=== PATIENT | female | born 1940 | race Caucasian/White ===

== ENCOUNTER → 2016-11-08 | Outpatient (CLI) | payer MEDICARE ==
[~2016-11-08] MED LIST: ENAL10TA7 PO
--- NOTE | 2016-11-08 21:41 | EKG ---
Date Performed: 11/08/2016 Time Performed: 12:16:24 PTAGE: 76 years EKG: Sinus rhythm POSSIBLE LEFT ATRIAL ENLARGEMENT Since previous tracing, no significant change noted BORDERLINE ECG PREVIOUS TRACING : 11/22/2013 01.12 DOCTOR: Raysa Bernal Interpretating Date/Time 11/08/2016 21:39:16
== END ==
LOC: HCAV 11:43
PROVIDERS: ATTEND Orthopaedic Surgery Hand Surgery
DX: I10 Essential (primary) hypertension (principal)
CPT/HCPCS: 93005

== ENCOUNTER → 2016-12-30 | Outpatient (CLI) | payer MEDICARE ==
[2016-12-30 09:33] LABS: HEMATOCRIT 40.7 % (35.0-46.0); MEAN CELL VOLUME 92.1 FL (80.0-100.0); MEAN CORPUSCULAR HEMOGLOBIN 30.4 PG (27.0-34.0); PLATELET COUNT 227 TH/MM3 (150-450); RED BLOOD COUNT 4.42 MIL/MM3 (4.00-5.30); RED CELL DISTRIBUTION WIDTH 13.2 % (11.6-17.2); REVIEW FLAG FINAL; WHITE BLOOD COUNT 5.6 TH/MM3 (4.0-11.0)
[2016-12-30 10:05] LABS: ALKALINE PHOSPHATASE 79 U/L (45-117); ALT (GPT) 21 U/L (10-53); ANION GAP 8 MEQ/L (5-15); AST (GOT) 20 U/L (15-37); BICARBONATE 28.5 MEQ/L (21.0-32.0); BLOOD UREA NITROGEN 17 MG/DL (7-18); CHLORIDE 103 MEQ/L (98-107); GLOMERULAR FILTRATION RATE 74 ML/MIN (>89); GLUCOSE,FASTING 89 MG/DL (74-99); HDL CHOLESTEROL 83.7 MG/DL (40.0-60.0); LDL CHOLESTEROL 72 MG/DL (0-99); LDL CHOLESTEROL DIRECT 63 MG/DL (0-99); POTASSIUM 4.4 MEQ/L (3.5-5.1); SODIUM (NA) 139 MEQ/L (136-145); TOTAL BILIRUBIN ADULT 0.4 MG/DL (0.2-1.0)
[2016-12-30 14:40] LABS: HEMOGLOBIN A1a 1.2 %; HEMOGLOBIN A1b 0.7 %; HEMOGLOBIN Ao 84.8 %; HEMOGLOBIN F 1.5 %; HEMOGLOBIN LA1C 2.1 %; HEMOGLOBIN P3 3.9 %
== END ==
LOC: PLAB 07:41
PROVIDERS: ATTEND Family Medicine
DX: R53.83 Other fatigue (principal); E78.2 Mixed hyperlipidemia; I10 Essential (primary) hypertension; R73.01 Impaired fasting glucose
CPT/HCPCS: 36415; 80053; 80061; 83036; 83721; 84443; 85027

== ENCOUNTER → 2017-05-08 | Outpatient (CLI) | payer MEDICARE ==
[~2017-05-08] MED LIST changes: +DIFL0.0512 RIGHT EYE; +ENAL20TA PO; +LUNE1TAB6 PO; +NEPA0.3D RIGHT EYE; +SIMV40TA PO; +VIGA0.5D RIGHT EYE
[2017-05-08 11:53] LABS: HEMATOCRIT 40.5 % (35.0-46.0); MEAN CELL VOLUME 94.5 FL (80.0-100.0); MEAN CORPUSCULAR HGB CONC 33.8 % (32.0-36.0); PLATELET COUNT 256 TH/MM3 (150-450); RED BLOOD COUNT 4.29 MIL/MM3 (4.00-5.30); RED CELL DISTRIBUTION WIDTH 13.8 % (11.6-17.2); REVIEW FLAG FINAL; WHITE BLOOD COUNT 3.6 TH/MM3 (4.0-11.0)
[2017-05-08 12:02] LABS: ANION GAP 6 MEQ/L (5-15); AST (GOT) 21 U/L (15-37); BICARBONATE 26.6 MEQ/L (21.0-32.0); BLOOD UREA NITROGEN 16 MG/DL (7-18); CHLORIDE 104 MEQ/L (98-107); GLOMERULAR FILTRATION RATE 71 ML/MIN (>89); GLUCOSE,FASTING 85 MG/DL (74-99); POTASSIUM 4.3 MEQ/L (3.5-5.1); SODIUM (NA) 137 MEQ/L (136-145)
[2017-05-08 12:08] LABS: ALKALINE PHOSPHATASE 73 U/L (45-117); ALT (GPT) 21 U/L (10-53); HDL CHOLESTEROL 70.3 MG/DL (40.0-60.0); LDL CHOLESTEROL 80 MG/DL (0-99); LDL CHOLESTEROL DIRECT 92 MG/DL (0-99); TOTAL BILIRUBIN ADULT 0.3 MG/DL (0.2-1.0)
== END ==
LOC: PLAB 08:00
PROVIDERS: ATTEND Family Medicine
DX: E78.2 Mixed hyperlipidemia (principal); I10 Essential (primary) hypertension
CPT/HCPCS: 36415; 80053; 80061; 83721; 85027

== ENCOUNTER 2017-06-07 06:30 | Observation (INO) | payer MEDICARE ==
[~2017-06-07] VITALS: Ht 154.9 cm; Wt 52.0 kg
[~2017-06-07 06:30] MED LIST changes: +CYCLOPENTOLATE HCL 1% OPHT SOLN 2 ML BTL ONE; -ENAL10TA7 PO; -LUNE1TAB6 PO; +PHENYLEPHRINE HCL 10% OPTH SOLN 5 ML BTL ONE; +TETRACAINE 0.5% OPTH SOLN 4 ML BTL ONE; +TROPICAMIDE 1% OPHT SOLN 15 ML BTL ONE
[2017-06-07] MEDS ORDERED: LACTATED RINGER'S 1000 ML IV PRN (06:45)
[2017-06-07] MEDS ORDERED: POVIDONE IODINE 5% (ANTISEPSIS KIT) 4 APPLICATIONS EACH NARE PRN (06:45)
[2017-06-07] MEDS ORDERED: SODIUM CHLORID 0.9% 500 ML IV PRN (06:45)
[2017-06-07] MEDS ORDERED: INSULIN HUMAN REGULAR 1,000 UNITS/10 ML VIAL SQ PRN (06:45)
[2017-06-07] MEDS ORDERED: CHLORHEXIDINE GLUCONATE 2 % 1 PACK (2 CLOTHS) TOPICAL PRN (06:45)
[2017-06-07] MEDS ORDERED: METOPROLOL TARTRATE 25 MG TAB PO PRN (06:45)
[2017-06-07] MEDS ORDERED: TOBRAMYCIN/DEXAMETHASONE OPTH OINT 3.5 GM TUBE ONE (07:10)
[2017-06-07] MEDS ORDERED: VISCOAT OPHT IRRIG SOLN 0.75 ML SYRINGE ONE (07:11)
[2017-06-07] MEDS: TROPICAMIDE 1% OPHT SOLN 15 ML BTL RIGHT EYE SCH ×3 (07:11→07:21)
[2017-06-07] MEDS: CYCLOPENTOLATE HCL 1% OPHT SOLN 2 ML BTL RIGHT EYE SCH ×3 (07:11→07:21)
[2017-06-07] MEDS: PHENYLEPHRINE HCL 2.5% OPTH SOLN 2 ML BTL RIGHT EYE SCH ×3 (07:11→07:21)
[2017-06-07] MEDS: TETRACAINE 0.5% OPTH SOLN 4 ML BTL RIGHT EYE SCH ×3 (07:11→07:21)
[2017-06-07] MEDS ORDERED: LUNE1TAB6 PO (07:23)
[2017-06-07] MEDS ORDERED: EPINEPHrine HCL (1:1000) 1 MG/ML VIAL ONE (08:06)
[2017-06-07 09:25] VITALS: PULSE 85
[2017-06-07] MEDS ORDERED: ACETAMINOPHEN 325 MG TAB ONE (09:31)
[2017-06-07] MEDS ORDERED: LABETALOL HCL 100 MG/20 ML VIAL ONE (09:38)
[2017-06-07] MEDS ORDERED: MORPHINE SULFATE 4 MG/ML INJ ONE (09:40)
[2017-06-07] MEDS ORDERED: NITROGLYCERIN 0.4 MG SL 25 TABS/BTL SL ONE ×2 (10:42→11:30)
[2017-06-07] MEDS ORDERED: ASPIRIN 81 MG CHEW TAB ONE (10:43)
[2017-06-07] MEDS ORDERED: ASPIRIN 81 MG CHEW TAB PO ONE (11:30)
[2017-06-07 11:33] LABS: TROPONIN I LESS THAN 0.02 NG/ML (0.02-0.05)
[2017-06-07] MEDS ORDERED: PROPOFOL 200 MG/20 ML AMP IV ONE (12:00)
--- NOTE | 2017-06-07 12:10 | PD.OP ---
Operative Report Date of Surgery: Jun 07, 2017 Preoperative Diagnosis: (1) Nuclear sclerotic cataract of right eye Postoperative Diagnosis: (1) Pseudophakia of right eye Procedure: phacoemulsification and intraocular lens implant right eye Anesthesia: General Surgeon: Zamzam Matthews Communication Equipment Mechanic(s): none Operation and Findings: Patient was consented for surgery and taken back to the operating room. She was put under general anesthesia and prepped and draped in the usual sterile fashion for ophthalmic surgery. A wire lid speculum was placed in the right eye. A paracentesis incision was created at the 11 o'clock position on the limbus. Vision blue dye and viscoelastic was injected into the anterior chamber. The main incision was created at the 8 o'clock position on the limbus with a 2.4 mm keratome. A continuous curvilinear capsulorrhexis was made on the anterior lens capsule. Hydrodissection was used to separate the lens from the capsule. Phacoemulsification was used to remove the lens nucleus material. Irrigation and aspiration was used to remove the remaining cortical material. The lens implant ([id number] 22.0 D [id number]) was placed in the capsular bag. Viscoelastic was removed with irrigation and aspiration. The incisions were irrigated and found to be watertight. A 10-0 nylon suture was placed at the main incision. Tobradex ointment, a patch, and shield were placed on the right eye. The patient was sent to PACU. There she complained of chest pain and an immediate EKG was done. The patient was going to be transferred to [facility] for further workup. Zamzam Matthews MD Jun 07, 2017 12:10
--- NOTE | 2017-06-07 12:10 | PD.OP ---
Operative Report Date of Surgery: Jun 07, 2017 Preoperative Diagnosis: (1) Nuclear sclerotic cataract of right eye Postoperative Diagnosis: (1) Pseudophakia of right eye Procedure: phacoemulsification and intraocular lens implant right eye Anesthesia: General Surgeon: Zamzam Matthews Public Health Technician(s): none Operation and Findings: Patient was consented for surgery and taken back to the operating room. She was put under general anesthesia and prepped and draped in the usual sterile fashion for ophthalmic surgery. A wire lid speculum was placed in the right eye. A paracentesis incision was created at the 11 o'clock position on the limbus. Vision blue dye and viscoelastic was injected into the anterior chamber. The main incision was created at the 8 o'clock position on the limbus with a 2.4 mm keratome. A continuous curvilinear capsulorrhexis was made on the anterior lens capsule. Hydrodissection was used to separate the lens from the capsule. Phacoemulsification was used to remove the lens nucleus material. Irrigation and aspiration was used to remove the remaining cortical material. The lens implant ([id number] 22.0 D [id number]) was placed in the capsular bag. Viscoelastic was removed with irrigation and aspiration. The incisions were irrigated and found to be watertight. A 10-0 nylon suture was placed at the main incision. Tobradex ointment, a patch, and shield were placed on the right eye. The patient was sent to PACU. There she complained of chest pain and an immediate EKG was done. The patient was going to be transferred to [facility] for further workup. Zamzam Matthews MD Jun 07, 2017 12:10
[2017-06-07 15:06] VITALS: BP 204/86; PULSE 67; RESP 20; TEMP 98.1; O2SAT 98
--- NOTE | 2017-06-07 16:16 | HHI.HP ---
[facility] Primary Care Physician Yariel Hamilton MD Chief Complaint Chest pain History of Present Illness 77-year-old female with known hypertension and hyperlipidemia presents to the emergency room for further evaluation of chest pain while in recovery status post right cataract removal at our [facility]. Onset 10:30. Location [facility]. Described as a "someone was pulling a tight belt around my chest." No associated symptoms of nausea, vomiting, dyspnea, or diaphoresis. No radiation of pain. Severity 6/10. Duration 10 minutes. No known precipitating factors. Relieving factors nitroglycerin, stating worked fairly quickly. Denies similar pain in the past. No particular movement, position, or deep breathing may pain better or worse. Review of Systems General: No fatigue,weakness, fever, chills, or recent illness. Has been her general state of health. Endorses she was anxious regarding cataract surgery. HEENT: No [place], no right eye pain CV: As stated above. No current chest pain or pressure. Chest pain-free since initial episode. RESP: No SOB, cough, or sputum production. GI: No nausea, vomiting, or bowel changes. : No dysuria EXT: No lower leg edema, no paraesthesias MS: No discomfort or change in ROM NEURO: No change in memory, difficulty with balance, LOC, motor/sensory deficits PSYCH: No anxiety or depression. SKIN: No rashes, no concerning lesions Past Family Social History Allergies: Coded Allergies: Sulfa (Sulfonamide Antibiotics) (Verified Allergy, Severe, Rash, 06/07/17) diatrizoate meglumine (Verified Allergy, Severe, SWELLING OF EARS AND FACE , 06/07/17) gadobenic acid (Verified Allergy, Severe, SWELLING OF EARS AND FACE, 06/07) gadodiamide (Verified Allergy, Severe, SWELLING OF EARS AND FACE, 06/07/17 ) gadoteridol (Verified Allergy, Severe, SWELLING OF EARS AND FACE, 06/07/17 ) iodixanol (Verified Allergy, Severe, SWELLING OF EARS AND FACE, 06/07/17) iohexol (Verified Allergy, Severe, SWELLING OF EARS AND FACE, 06/07/17) latex (Verified Allergy, Severe, Red and itchy, 06/07/17) penicillin G (Verified Allergy, Severe, Rash, 06/07/17) Past Medical History Hypertension, hyperlipidemia, insomnia Past Surgical History Hysterectomy Reported Medications Reported Meds & Active Scripts Active Vigamox Opth Drops (Moxifloxacin Opth Drops) 0.5 % Soln 1 Drop RIGHT EYE QID Ilevro Opth Drops (Nepafenac) 0.3 % Soln 1 Drop RIGHT EYE DAILY Durezol Opth (Difluprednate Opth) 0.05% Emul 1 Drop RIGHT EYE QID Lunesta (Eszopiclone) 1 Mg Tab 1 Mg PO HS PRN Simvastatin 40 Mg Tab 40 Mg PO HS Enalapril (Enalapril Maleate) 20 Mg Tab 20 Mg PO DAILY Active Ordered Medications Current Medications Medications (Trade) Dose Ordered Sig/Cony Route Start Time Stop Time Status Last Admin Lactated Ringer's 1,000 ml @ 30 mls/hr Q24H PRN IV 06/07/17 06:45 06/10/17 06:44 Sodium Chloride 500 ml @ 30 mls/hr [id number] PRN IV 06/07/17 06:45 06/10/17 06:44 06/07/17 07:22 (Lopressor) 25 mg SURGICAL ATTENDANT PRN PO 06/07/17 06:45 06/10/17 06:44 (Betadine 5% Antisepsis Kit) 1 applic SURGICAL ATTENDANT PRN EACH NARE 06/07/17 06:45 06/10/17 06:44 (Chlorhexidine 2% Cloth) 3 pack SURGICAL ATTENDANT PRN TOPICAL 06/07/17 06:45 06/10/17 06:44 (NovoLIN R INJ) See Protocol Table ... SURGICAL ATTENDANT PRN SQ 06/07/17 06:45 06/10/17 06:44 Family History Noncontributory for early onset cardiovascular disease. Social History Known hyperlipidemia and hypertension. No known coronary artery disease or diabetes. Former smoker quit in her early 30s, smokes one half pack daily. Endorses 2 glasses of wine weekly. Endorses an active lifestyle. Past cardiac testing 11/21/[address] for syncopal episode. No arrhythmias identified, rare PACs and PVCs Physical Exam Vital Signs Vital Signs Date Time Temp Pulse Resp B/P (MAP) Pulse Ox O2 Delivery O2 Flow Rate FiO2 06/07/17 15:06 98.1 67 20 204/86 (125) 98 06/07/17 14:00 98.6 63 16 143/70 (94) 98 Room Air 06/07/17 13:00 98.6 63 16 143/70 (94) 95 Room Air 06/07/17 12:00 98.6 66 16 158/105 (122) 95 Room Air 06/07/17 11:00 98.6 66 16 163/90 (114) 95 Room Air 06/07/17 10:45 62 16 187/98 (127) 98 Room Air 06/07/17 10:30 70 16 201/102 (135) 96 Room Air 06/07/17 10:15 77 16 155/94 (114) 98 Room Air 06/07/17 10:00 72 16 190/94 (126) 98 Room Air 06/07/17 09:45 75 16 194/96 (128) 98 Room Air 06/07/17 09:30 93 16 190/103 (132) 98 Room Air 06/07/17 09:30 98.6 84 16 170/113 (132) 98 Room Air 06/07/17 09:25 85 06/07/17 08:41 70 193/99 06/07/17 07:11 97.6 70 16 184/98 (126) 97 Physical Exam GENERAL: Alert WN, WD, NAD, pleasant, elderly female with right eye patch in place. HEAD: NC, AT CV: RRR, without murmur, rub, gallop, no JVD, S1-S2 no S3-S4. No carotid bruits. RESP: Clear lungs throughout bilateral, no crackles, wheeze, rhonchi, symmetrical chest rise, nonlabored, able to speak in full sentences ABD: Soft, NT, ND, no masses, positive bowel tones BACK: No CVAT EXT: Pulses +24, no dependent edema MS: Normal tone 4 extremities, nontender, no obvious deformities, full range of motion NEURO: CN II through CN XII grossly intact, motor strength 5/5 PSYCH: A+O 3, pleasant affect, appropriate speech, appropriate mood and affect , insight and judgment SKIN: Normal turgor, normal texture, no lesions, no rashes, brisk cap refill, even hair distribution Laboratory Laboratory Tests Test 06/07/17 10:55 Total Creatine Kinase 83 Troponin I LESS THAN 0.02 Course EKG NSR, no st t segment changes Caprini VTE Risk Assessment Caprini VTE Risk Assessment: Mod/High Risk (score >= 2) Caprini Risk Assessment Model Point Value = 1 Point Value = 2 Point Value = 3 Point Value = 5 Age 41-60 Minor surgery BMI > 25 kg/m2 Swollen legs Varicose veins or History of unexplained or recurrent spontaneous Oral contraceptives or hormone replacement Sepsis (< 1 month) Serious lung disease, including pneumonia (< 1 month) Abnormal pulmonary function Acute myocardial infarction Congestive heart failure (< 1 month) History of inflammatory bowel disease Medical patient at bed rest Age 61-74 Arthroscopic surgery Major open surgery (> 45 min) Laparoscopic surgery (> 45 min) Malignancy Confined to bed (> 72 hours) Immobilizing plaster cast Central venous access Age >= 75 History of VTE Family history of VTE Factor V Leiden Prothrombin [id number] Lupus anticoagulant Anticardiolipin antibodies Elevated serum homocysteine Heparin-induced thrombocytopenia Other congenital or acquired thrombophilia Stroke (< 1 month) Elective arthroplasty Hip, pelvis, or leg fracture Acute spinal cord injury (< 1 month) Prophylaxis Regimen Total Risk Factor Score Risk Level Prophylaxis Regimen 0-1 Low Early ambulation 2 Moderate Order ONE of the following: *Sequential Compression Device (SCD) *Heparin 5000 units SQ BID 3-4 Higher Order ONE of the following medications: *Heparin 5000 units SQ TID *Enoxaparin/Lovenox 40 mg SQ daily (WT < 150 kg, CrCl > 30 mL/min) *Enoxaparin/Lovenox 30 mg SQ daily (WT < 150 kg, CrCl > 10-29 mL/min) *Enoxaparin/Lovenox 30 mg SQ BID (WT < 150 kg, CrCl > 30 mL/min) AND/OR *Sequential Compression Device (SCD) 5 or more Highest Order ONE of the following medications: *Heparin 5000 units SQ TID (Preferred with Epidurals) *Enoxaparin/Lovenox 40 mg SQ daily (WT < 150 kg, CrCl > 30 mL/min) *Enoxaparin/Lovenox 30 mg SQ daily (WT < 150 kg, CrCl > 10-29 mL/min) *Enoxaparin/Lovenox 30 mg SQ BID (WT < 150 kg, CrCl > 30 mL/min) AND *Sequential Compression Device (SCD) Assessment and Plan Assessment and Plan #1 Chest pain-admitted to chest pain center. Ruled out with 3 sets of EKGs, cardiac enzymes, and monitored on telemetry overnight. Seen and evaluated by Dr. Kwan Olivarez. If ruled out we'll complete chemical stress test in a.m. This is been discussed with patient and both are agreeable plan of care. CBC, CMP, and Chest xray ordered. #2 Hypertension-continue enalapril #3 Hyperlipidemia-continue simvastatin #4 Insomnia-continue Lunesta #5 Status post right cataract removal-postop appointment tomorrow afternoon, if chemical stress test unremarkable will discharge with hopes of making postop appointment. Continue eye gtts as previously instructed. Aimee Sanches Jun 07, 2017 16:16
--- NOTE | 2017-06-07 16:16 | HHI.HP ---
[facility] Primary Care Physician Yariel Hamilton MD Chief Complaint Chest pain History of Present Illness 77-year-old female with known hypertension and hyperlipidemia presents to the emergency room for further evaluation of chest pain while in recovery status post right cataract removal at our [facility]. Onset 10:30. Location [facility]. Described as a "someone was pulling a tight belt around my chest." No associated symptoms of nausea, vomiting, dyspnea, or diaphoresis. No radiation of pain. Severity 6/10. Duration 10 minutes. No known precipitating factors. Relieving factors nitroglycerin, stating worked fairly quickly. Denies similar pain in the past. No particular movement, position, or deep breathing may pain better or worse. Review of Systems General: No fatigue,weakness, fever, chills, or recent illness. Has been her general state of health. Endorses she was anxious regarding cataract surgery. HEENT: No [place], no right eye pain CV: As stated above. No current chest pain or pressure. Chest pain-free since initial episode. RESP: No SOB, cough, or sputum production. GI: No nausea, vomiting, or bowel changes. : No dysuria EXT: No lower leg edema, no paraesthesias MS: No discomfort or change in ROM NEURO: No change in memory, difficulty with balance, LOC, motor/sensory deficits PSYCH: No anxiety or depression. SKIN: No rashes, no concerning lesions Past Family Social History Allergies: Coded Allergies: Sulfa (Sulfonamide Antibiotics) (Verified Allergy, Severe, Rash, 06/07/17) diatrizoate meglumine (Verified Allergy, Severe, SWELLING OF EARS AND FACE , 06/07/17) gadobenic acid (Verified Allergy, Severe, SWELLING OF EARS AND FACE, 06/07) gadodiamide (Verified Allergy, Severe, SWELLING OF EARS AND FACE, 06/07/17 ) gadoteridol (Verified Allergy, Severe, SWELLING OF EARS AND FACE, 06/07/17 ) iodixanol (Verified Allergy, Severe, SWELLING OF EARS AND FACE, 06/07/17) iohexol (Verified Allergy, Severe, SWELLING OF EARS AND FACE, 06/07/17) latex (Verified Allergy, Severe, Red and itchy, 06/07/17) penicillin G (Verified Allergy, Severe, Rash, 06/07/17) Past Medical History Hypertension, hyperlipidemia, insomnia Past Surgical History Hysterectomy Reported Medications Reported Meds & Active Scripts Active Vigamox Opth Drops (Moxifloxacin Opth Drops) 0.5 % Soln 1 Drop RIGHT EYE QID Ilevro Opth Drops (Nepafenac) 0.3 % Soln 1 Drop RIGHT EYE DAILY Durezol Opth (Difluprednate Opth) 0.05% Emul 1 Drop RIGHT EYE QID Lunesta (Eszopiclone) 1 Mg Tab 1 Mg PO HS PRN Simvastatin 40 Mg Tab 40 Mg PO HS Enalapril (Enalapril Maleate) 20 Mg Tab 20 Mg PO DAILY Active Ordered Medications Current Medications Medications (Trade) Dose Ordered Sig/Cony Route Start Time Stop Time Status Last Admin Lactated Ringer's 1,000 ml @ 30 mls/hr Q24H PRN IV 06/07/17 06:45 06/10/17 06:44 Sodium Chloride 500 ml @ 30 mls/hr [id number] PRN IV 06/07/17 06:45 06/10/17 06:44 06/07/17 07:22 (Lopressor) 25 mg GRID MAKER PRN PO 06/07/17 06:45 06/10/17 06:44 (Betadine 5% Antisepsis Kit) 1 applic GRID MAKER PRN EACH NARE 06/07/17 06:45 06/10/17 06:44 (Chlorhexidine 2% Cloth) 3 pack GRID MAKER PRN TOPICAL 06/07/17 06:45 06/10/17 06:44 (NovoLIN R INJ) See Protocol Table ... GRID MAKER PRN SQ 06/07/17 06:45 06/10/17 06:44 Family History Noncontributory for early onset cardiovascular disease. Social History Known hyperlipidemia and hypertension. No known coronary artery disease or diabetes. Former smoker quit in her early 30s, smokes one half pack daily. Endorses 2 glasses of wine weekly. Endorses an active lifestyle. Past cardiac testing 11/21/[address] for syncopal episode. No arrhythmias identified, rare PACs and PVCs Physical Exam Vital Signs Vital Signs Date Time Temp Pulse Resp B/P (MAP) Pulse Ox O2 Delivery O2 Flow Rate FiO2 06/07/17 15:06 98.1 67 20 204/86 (125) 98 06/07/17 14:00 98.6 63 16 143/70 (94) 98 Room Air 06/07/17 13:00 98.6 63 16 143/70 (94) 95 Room Air 06/07/17 12:00 98.6 66 16 158/105 (122) 95 Room Air 06/07/17 11:00 98.6 66 16 163/90 (114) 95 Room Air 06/07/17 10:45 62 16 187/98 (127) 98 Room Air 06/07/17 10:30 70 16 201/102 (135) 96 Room Air 06/07/17 10:15 77 16 155/94 (114) 98 Room Air 06/07/17 10:00 72 16 190/94 (126) 98 Room Air 06/07/17 09:45 75 16 194/96 (128) 98 Room Air 06/07/17 09:30 93 16 190/103 (132) 98 Room Air 06/07/17 09:30 98.6 84 16 170/113 (132) 98 Room Air 06/07/17 09:25 85 06/07/17 08:41 70 193/99 06/07/17 07:11 97.6 70 16 184/98 (126) 97 Physical Exam GENERAL: Alert WN, WD, NAD, pleasant, elderly female with right eye patch in place. HEAD: NC, AT CV: RRR, without murmur, rub, gallop, no JVD, S1-S2 no S3-S4. No carotid bruits. RESP: Clear lungs throughout bilateral, no crackles, wheeze, rhonchi, symmetrical chest rise, nonlabored, able to speak in full sentences ABD: Soft, NT, ND, no masses, positive bowel tones BACK: No CVAT EXT: Pulses +24, no dependent edema MS: Normal tone 4 extremities, nontender, no obvious deformities, full range of motion NEURO: CN II through CN XII grossly intact, motor strength 5/5 PSYCH: A+O 3, pleasant affect, appropriate speech, appropriate mood and affect , insight and judgment SKIN: Normal turgor, normal texture, no lesions, no rashes, brisk cap refill, even hair distribution Laboratory Laboratory Tests Test 06/07/17 10:55 Total Creatine Kinase 83 Troponin I LESS THAN 0.02 Course EKG NSR, no st t segment changes Caprini VTE Risk Assessment Caprini VTE Risk Assessment: Mod/High Risk (score >= 2) Caprini Risk Assessment Model Point Value = 1 Point Value = 2 Point Value = 3 Point Value = 5 Age 41-60 Minor surgery BMI > 25 kg/m2 Swollen legs Varicose veins or History of unexplained or recurrent spontaneous Oral contraceptives or hormone replacement Sepsis (< 1 month) Serious lung disease, including pneumonia (< 1 month) Abnormal pulmonary function Acute myocardial infarction Congestive heart failure (< 1 month) History of inflammatory bowel disease Medical patient at bed rest Age 61-74 Arthroscopic surgery Major open surgery (> 45 min) Laparoscopic surgery (> 45 min) Malignancy Confined to bed (> 72 hours) Immobilizing plaster cast Central venous access Age >= 75 History of VTE Family history of VTE Factor V Leiden Prothrombin [id number] Lupus anticoagulant Anticardiolipin antibodies Elevated serum homocysteine Heparin-induced thrombocytopenia Other congenital or acquired thrombophilia Stroke (< 1 month) Elective arthroplasty Hip, pelvis, or leg fracture Acute spinal cord injury (< 1 month) Prophylaxis Regimen Total Risk Factor Score Risk Level Prophylaxis Regimen 0-1 Low Early ambulation 2 Moderate Order ONE of the following: *Sequential Compression Device (SCD) *Heparin 5000 units SQ BID 3-4 Higher Order ONE of the following medications: *Heparin 5000 units SQ TID *Enoxaparin/Lovenox 40 mg SQ daily (WT < 150 kg, CrCl > 30 mL/min) *Enoxaparin/Lovenox 30 mg SQ daily (WT < 150 kg, CrCl > 10-29 mL/min) *Enoxaparin/Lovenox 30 mg SQ BID (WT < 150 kg, CrCl > 30 mL/min) AND/OR *Sequential Compression Device (SCD) 5 or more Highest Order ONE of the following medications: *Heparin 5000 units SQ TID (Preferred with Epidurals) *Enoxaparin/Lovenox 40 mg SQ daily (WT < 150 kg, CrCl > 30 mL/min) *Enoxaparin/Lovenox 30 mg SQ daily (WT < 150 kg, CrCl > 10-29 mL/min) *Enoxaparin/Lovenox 30 mg SQ BID (WT < 150 kg, CrCl > 30 mL/min) AND *Sequential Compression Device (SCD) Assessment and Plan Assessment and Plan #1 Chest pain-admitted to chest pain center. Ruled out with 3 sets of EKGs, cardiac enzymes, and monitored on telemetry overnight. Seen and evaluated by Dr. Kwan Olivarez. If ruled out we'll complete chemical stress test in a.m. This is been discussed with patient and both are agreeable plan of care. CBC, CMP, and Chest xray ordered. #2 Hypertension-continue enalapril #3 Hyperlipidemia-continue simvastatin #4 Insomnia-continue Lunesta #5 Status post right cataract removal-postop appointment tomorrow afternoon, if chemical stress test unremarkable will discharge with hopes of making postop appointment. Continue eye gtts as previously instructed. Aimee Sanches Jun 07, 2017 16:16
--- NOTE | 2017-06-07 16:16 | HHI.HP ---
[facility] Primary Care Physician Yariel Hamilton MD Chief Complaint Chest pain History of Present Illness 77-year-old female with known hypertension and hyperlipidemia presents to the emergency room for further evaluation of chest pain while in recovery status post right cataract removal at our [facility]. Onset 10:30. Location [facility]. Described as a "someone was pulling a tight belt around my chest." No associated symptoms of nausea, vomiting, dyspnea, or diaphoresis. No radiation of pain. Severity 6/10. Duration 10 minutes. No known precipitating factors. Relieving factors nitroglycerin, stating worked fairly quickly. Denies similar pain in the past. No particular movement, position, or deep breathing may pain better or worse. Review of Systems General: No fatigue,weakness, fever, chills, or recent illness. Has been her general state of health. Endorses she was anxious regarding cataract surgery. HEENT: No [place], no right eye pain CV: As stated above. No current chest pain or pressure. Chest pain-free since initial episode. RESP: No SOB, cough, or sputum production. GI: No nausea, vomiting, or bowel changes. : No dysuria EXT: No lower leg edema, no paraesthesias MS: No discomfort or change in ROM NEURO: No change in memory, difficulty with balance, LOC, motor/sensory deficits PSYCH: No anxiety or depression. SKIN: No rashes, no concerning lesions Past Family Social History Allergies: Coded Allergies: Sulfa (Sulfonamide Antibiotics) (Verified Allergy, Severe, Rash, 06/07/17) diatrizoate meglumine (Verified Allergy, Severe, SWELLING OF EARS AND FACE , 06/07/17) gadobenic acid (Verified Allergy, Severe, SWELLING OF EARS AND FACE, 06/07) gadodiamide (Verified Allergy, Severe, SWELLING OF EARS AND FACE, 06/07/17 ) gadoteridol (Verified Allergy, Severe, SWELLING OF EARS AND FACE, 06/07/17 ) iodixanol (Verified Allergy, Severe, SWELLING OF EARS AND FACE, 06/07/17) iohexol (Verified Allergy, Severe, SWELLING OF EARS AND FACE, 06/07/17) latex (Verified Allergy, Severe, Red and itchy, 06/07/17) penicillin G (Verified Allergy, Severe, Rash, 06/07/17) Past Medical History Hypertension, hyperlipidemia, insomnia Past Surgical History Hysterectomy Reported Medications Reported Meds & Active Scripts Active Vigamox Opth Drops (Moxifloxacin Opth Drops) 0.5 % Soln 1 Drop RIGHT EYE QID Ilevro Opth Drops (Nepafenac) 0.3 % Soln 1 Drop RIGHT EYE DAILY Durezol Opth (Difluprednate Opth) 0.05% Emul 1 Drop RIGHT EYE QID Lunesta (Eszopiclone) 1 Mg Tab 1 Mg PO HS PRN Simvastatin 40 Mg Tab 40 Mg PO HS Enalapril (Enalapril Maleate) 20 Mg Tab 20 Mg PO DAILY Active Ordered Medications Current Medications Medications (Trade) Dose Ordered Sig/Cony Route Start Time Stop Time Status Last Admin Lactated Ringer's 1,000 ml @ 30 mls/hr Q24H PRN IV 06/07/17 06:45 06/10/17 06:44 Sodium Chloride 500 ml @ 30 mls/hr [id number] PRN IV 06/07/17 06:45 06/10/17 06:44 06/07/17 07:22 (Lopressor) 25 mg [employer] PRN PO 06/07/17 06:45 06/10/17 06:44 (Betadine 5% Antisepsis Kit) 1 applic [employer] PRN EACH NARE 06/07/17 06:45 06/10/17 06:44 (Chlorhexidine 2% Cloth) 3 pack [employer] PRN TOPICAL 06/07/17 06:45 06/10/17 06:44 (NovoLIN R INJ) See Protocol Table ... [employer] PRN SQ 06/07/17 06:45 06/10/17 06:44 Family History Noncontributory for early onset cardiovascular disease. Social History Known hyperlipidemia and hypertension. No known coronary artery disease or diabetes. Former smoker quit in her early 30s, smokes one half pack daily. Endorses 2 glasses of wine weekly. Endorses an active lifestyle. Past cardiac testing 11/21/[address] for syncopal episode. No arrhythmias identified, rare PACs and PVCs Physical Exam Vital Signs Vital Signs Date Time Temp Pulse Resp B/P (MAP) Pulse Ox O2 Delivery O2 Flow Rate FiO2 06/07/17 15:06 98.1 67 20 204/86 (125) 98 06/07/17 14:00 98.6 63 16 143/70 (94) 98 Room Air 06/07/17 13:00 98.6 63 16 143/70 (94) 95 Room Air 06/07/17 12:00 98.6 66 16 158/105 (122) 95 Room Air 06/07/17 11:00 98.6 66 16 163/90 (114) 95 Room Air 06/07/17 10:45 62 16 187/98 (127) 98 Room Air 06/07/17 10:30 70 16 201/102 (135) 96 Room Air 06/07/17 10:15 77 16 155/94 (114) 98 Room Air 06/07/17 10:00 72 16 190/94 (126) 98 Room Air 06/07/17 09:45 75 16 194/96 (128) 98 Room Air 06/07/17 09:30 93 16 190/103 (132) 98 Room Air 06/07/17 09:30 98.6 84 16 170/113 (132) 98 Room Air 06/07/17 09:25 85 06/07/17 08:41 70 193/99 06/07/17 07:11 97.6 70 16 184/98 (126) 97 Physical Exam GENERAL: Alert WN, WD, NAD, pleasant, elderly female with right eye patch in place. HEAD: NC, AT CV: RRR, without murmur, rub, gallop, no JVD, S1-S2 no S3-S4. No carotid bruits. RESP: Clear lungs throughout bilateral, no crackles, wheeze, rhonchi, symmetrical chest rise, nonlabored, able to speak in full sentences ABD: Soft, NT, ND, no masses, positive bowel tones BACK: No CVAT EXT: Pulses +24, no dependent edema MS: Normal tone 4 extremities, nontender, no obvious deformities, full range of motion NEURO: CN II through CN XII grossly intact, motor strength 5/5 PSYCH: A+O 3, pleasant affect, appropriate speech, appropriate mood and affect , insight and judgment SKIN: Normal turgor, normal texture, no lesions, no rashes, brisk cap refill, even hair distribution Laboratory Laboratory Tests Test 06/07/17 10:55 Total Creatine Kinase 83 Troponin I LESS THAN 0.02 Course EKG NSR, no st t segment changes Caprini VTE Risk Assessment Caprini VTE Risk Assessment: Mod/High Risk (score >= 2) Caprini Risk Assessment Model Point Value = 1 Point Value = 2 Point Value = 3 Point Value = 5 Age 41-60 Minor surgery BMI > 25 kg/m2 Swollen legs Varicose veins or History of unexplained or recurrent spontaneous Oral contraceptives or hormone replacement Sepsis (< 1 month) Serious lung disease, including pneumonia (< 1 month) Abnormal pulmonary function Acute myocardial infarction Congestive heart failure (< 1 month) History of inflammatory bowel disease Medical patient at bed rest Age 61-74 Arthroscopic surgery Major open surgery (> 45 min) Laparoscopic surgery (> 45 min) Malignancy Confined to bed (> 72 hours) Immobilizing plaster cast Central venous access Age >= 75 History of VTE Family history of VTE Factor V Leiden Prothrombin [id number] Lupus anticoagulant Anticardiolipin antibodies Elevated serum homocysteine Heparin-induced thrombocytopenia Other congenital or acquired thrombophilia Stroke (< 1 month) Elective arthroplasty Hip, pelvis, or leg fracture Acute spinal cord injury (< 1 month) Prophylaxis Regimen Total Risk Factor Score Risk Level Prophylaxis Regimen 0-1 Low Early ambulation 2 Moderate Order ONE of the following: *Sequential Compression Device (SCD) *Heparin 5000 units SQ BID 3-4 Higher Order ONE of the following medications: *Heparin 5000 units SQ TID *Enoxaparin/Lovenox 40 mg SQ daily (WT < 150 kg, CrCl > 30 mL/min) *Enoxaparin/Lovenox 30 mg SQ daily (WT < 150 kg, CrCl > 10-29 mL/min) *Enoxaparin/Lovenox 30 mg SQ BID (WT < 150 kg, CrCl > 30 mL/min) AND/OR *Sequential Compression Device (SCD) 5 or more Highest Order ONE of the following medications: *Heparin 5000 units SQ TID (Preferred with Epidurals) *Enoxaparin/Lovenox 40 mg SQ daily (WT < 150 kg, CrCl > 30 mL/min) *Enoxaparin/Lovenox 30 mg SQ daily (WT < 150 kg, CrCl > 10-29 mL/min) *Enoxaparin/Lovenox 30 mg SQ BID (WT < 150 kg, CrCl > 30 mL/min) AND *Sequential Compression Device (SCD) Assessment and Plan Assessment and Plan #1 Chest pain-admitted to chest pain center. Ruled out with 3 sets of EKGs, cardiac enzymes, and monitored on telemetry overnight. Seen and evaluated by Dr. Kwan Olivarez. If ruled out we'll complete chemical stress test in a.m. This is been discussed with patient and both are agreeable plan of care. CBC, CMP, and Chest xray ordered. #2 Hypertension-continue enalapril #3 Hyperlipidemia-continue simvastatin #4 Insomnia-continue Lunesta #5 Status post right cataract removal-postop appointment tomorrow afternoon, if chemical stress test unremarkable will discharge with hopes of making postop appointment. Continue eye gtts as previously instructed. Aimee Sanches Jun 07, 2017 16:16
[2017-06-07] MEDS ORDERED: SODIUM CHLORIDE 0.9% FLUSH 10 ML FLUSH IV FLUSH PRN (17:30)
[2017-06-07] MEDS ORDERED: NITROGLYCERIN 0.4 MG SL 25 TABS/BTL SL PRN (17:30)
[2017-06-07] MEDS ORDERED: ESZOPICLONE 1 MG TAB PO PRN (17:30)
[2017-06-07] MEDS ORDERED: ACETAMINOPHEN 500 MG CPLT PO PRN (17:30)
[2017-06-07] MEDS ORDERED: ONDANSETRON HCL 4 MG/2 ML VIAL IV PUSH PRN (17:30)
--- NOTE | 2017-06-07 17:58 | RADRPT ---
EXAM DATE/TIME: 06/07/2017 18:31 [facility] COMPARISON: CHEST SINGLE AP, November 21, 2013, 14:14. INDICATIONS : Chest pain. MEDICAL HISTORY : None. SURGICAL HISTORY : None. ENCOUNTER: Initial ACUITY: 1 day PAIN SCORE: 10 LOCATION: Bilateral chest FINDINGS: A single view of the chest demonstrates the lungs to be symmetrically aerated without evidence of mas s, infiltrate or effusion. The cardiomediastinal contours are unremarkable. Osseous structures are intact. CONCLUSION: The lungs are clear. Dony Funez MD on June 07, 2017 at 17:57 Board Certified Radiologist. This report was verified electronically.
[2017-06-07] MEDS ORDERED: DIFLUPREDNATE OPTH RIGHT EYE SCH (18:00)
[2017-06-07] MEDS ORDERED: MOXIFLOXACIN 0.5% OPHT SOLN 3 ML BTL RIGHT EYE SCH (18:00)
[2017-06-07 18:03] LABS: ALBUMIN 3.8 GM/DL (3.4-5.0); ALT (GPT) 41 U/L (10-53); AST (GOT) 39 U/L (15-37); BICARBONATE 28.3 MEQ/L (21.0-32.0); BLOOD UREA NITROGEN 15 MG/DL (7-18); CALCIUM 8.5 MG/DL (8.5-10.1); CHLORIDE 106 MEQ/L (98-107); CREATININE 0.61 MG/DL (0.50-1.00); GLOMERULAR FILTRATION RATE 95 ML/MIN (>89); GLUCOSE,RANDOM 75 MG/DL (74-106); SODIUM (NA) 139 MEQ/L (136-145)
[2017-06-07 18:06] LABS: ALKALINE PHOSPHATASE 67 U/L (45-117); TOTAL BILIRUBIN ADULT 0.4 MG/DL (0.2-1.0); TOTAL PROTEIN 6.6 GM/DL (6.4-8.2)
[2017-06-07 18:07] LABS: TROPONIN I LESS THAN 0.02 NG/ML (0.02-0.05)
[2017-06-07 19:22] VITALS: BP 174/78; PULSE 73; RESP 16; TEMP 98.1; O2SAT 96
[2017-06-07 20:00] VITALS: PULSE 79
[2017-06-07] MEDS: ENALAPRIL MALEATE 10 MG TAB PO SCH (20:15)
[2017-06-07] MEDS: SODIUM CHLORIDE 0.9% FLUSH 10 ML FLUSH IV FLUSH SCH (20:15)
[2017-06-07 20:43] LABS: HEMATOCRIT 38.7 % (35.0-46.0); HEMOGLOBIN 12.7 GM/DL (11.6-15.3); MEAN CELL VOLUME 94.3 FL (80.0-100.0); MEAN CORPUSCULAR HGB CONC 32.8 % (32.0-36.0); MEAN PLATELET VOLUME 9.1 FL (7.0-11.0); PLATELET COUNT 230 TH/MM3 (150-450); RED CELL DISTRIBUTION WIDTH 12.8 % (11.6-17.2); WHITE BLOOD COUNT 5.8 TH/MM3 (4.0-11.0)
[2017-06-07] MEDS ORDERED: PRAVASTATIN SOD 80 MG TAB PO SCH (21:00)
[2017-06-07 21:06] LABS: TROPONIN I LESS THAN 0.02 NG/ML (0.02-0.05)
[2017-06-07 23:46] VITALS: BP 189/91; PULSE 70; RESP 16; TEMP 97.7; O2SAT 97
[2017-06-08] VITALS (9 sets, daily range): BP systolic 167–182; BP diastolic 78–98; PULSE 66–75; RESP 18; TEMP 97.9–98; O2SAT 94–97
[2017-06-08] MEDS ORDERED: amLODIPine BESYLATE 5 MG TAB PO SCH (04:30)
[2017-06-08] MEDS ORDERED: ASPIRIN 325 MG TAB PO SCH (09:00)
[2017-06-08] MEDS ORDERED: ENALAPRIL MALEATE 10 MG TAB PO SCH (09:00)
[2017-06-08] MEDS ORDERED: NON-FORMULARY DRUG (Nepafenac Opth Drops (Ilevro Opth Drops) 1 DROP) RIGHT EYE SCH (09:00)
[2017-06-08] MEDS ORDERED: REGADENOSON INJ 0.4 MG/5 ML SYR ONE (09:28)
[2017-06-08] MEDS: ENALAPRIL MALEATE 10 MG TAB PO SCH (10:55)
[2017-06-08] MEDS: SODIUM CHLORIDE 0.9% FLUSH 10 ML FLUSH IV FLUSH SCH (10:57)
--- NOTE | 2017-06-08 12:09 | RADRPT ---
EXAM DATE/TIME: 06/08/2017 08:29 [facility] COMPARISON: No previous studies available for comparison. INDICATIONS : Midsternal chest pain. Angina. DOSE: 25.3 mCi Tc99m Myoview at stress. 8.8 mCi Tc99m Myoview at rest. 0.4 mg Lexiscan STRESS SYMPTOMS: Patient denies symptoms. EJECTION FRACTION: > 70% MEDICAL HISTORY : Hypertension. SURGICAL HISTORY : Inguinal hernia repair. Hysterectomy. Tubal ligation. ENCOUNTER: Initial ACUITY: 1 day PAIN SCALE: 6/10 LOCATION: Midsternal chest TECHNIQUE: The patient underwent pharmacologic stress with infusion of prescribed dose. Continuous ECG tracing was monitored during stress. Gated SPECT imaging was performed after stress and conventional SPECT i maging was performed at rest. The examination was performed on a SPECT/CT scanner, both attenuation and non-corrected datasets were reviewed. FINDINGS: DISTRIBUTION: The maximum perfused segment at stress is in the lateral wall. PERFUSION STUDY: The pattern of perfusion at stress is within normal limits. GATED STUDY: There is intact wall motion and thickening without hypokinetic or dyskinetic segments. CONCLUSION: 1. No fixed or reversible wall defects to suggest ischemia or infarction. 2. Normal wall motion and calculated ejection fraction. RISK CATEGORY: Low (<1% Annual Mortality Rate) Porfirio Suarez MD on June 08, 2017 at 12:05 Board Certified Radiologist. This report was verified electronically.
--- NOTE | 2017-06-08 12:46 | HHI.DCPOC ---
Discharge Care Plan Diagnosis: (1) Cataract (2) Chest pain (3) Hypertension (4) Hyperlipidemia Goals to Promote Your Health * To prevent worsening of your condition and complications * To maintain your health at the optimal level Directions to Meet Your Goals Take your medications as prescribed Follow your dietary instruction Follow activity as directed Keep your appointments as scheduled Take your immunizations and boosters as scheduled If your symptoms worsen call your PCP, if no PCP go to Urgent Care Center or Emergency Room Smoking is Dangerous to Your Health. Avoid second hand smoke Call the 24-hour hour crisis hotline for domestic abuse at [place] Jun 08, 2017 12:46
--- NOTE | 2017-06-08 12:46 | HHI.DCPOC ---
Discharge Care Plan Diagnosis: (1) Cataract (2) Chest pain (3) Hypertension (4) Hyperlipidemia Goals to Promote Your Health * To prevent worsening of your condition and complications * To maintain your health at the optimal level Directions to Meet Your Goals Take your medications as prescribed Follow your dietary instruction Follow activity as directed Keep your appointments as scheduled Take your immunizations and boosters as scheduled If your symptoms worsen call your PCP, if no PCP go to Urgent Care Center or Emergency Room Smoking is Dangerous to Your Health. Avoid second hand smoke Call the 24-hour hour crisis hotline for domestic abuse at [place] Jun 08, 2017 12:46
--- NOTE | 2017-06-08 12:46 | HHI.DCPOC ---
Discharge Care Plan Diagnosis: (1) Cataract (2) Chest pain (3) Hypertension (4) Hyperlipidemia Goals to Promote Your Health * To prevent worsening of your condition and complications * To maintain your health at the optimal level Directions to Meet Your Goals Take your medications as prescribed Follow your dietary instruction Follow activity as directed Keep your appointments as scheduled Take your immunizations and boosters as scheduled If your symptoms worsen call your PCP, if no PCP go to Urgent Care Center or Emergency Room Smoking is Dangerous to Your Health. Avoid second hand smoke Call the 24-hour hour crisis hotline for domestic abuse at [place] Jun 08, 2017 12:46
[2017-06-08] MEDS ORDERED: amLODIPine BESYLATE 5 MG TAB PO ONE (13:00)
--- NOTE | 2017-06-10 13:00 | EKG ---
Date Performed: 06/07/2017 Time Performed: 17:55:48 PTAGE: 77 years EKG: Sinus rhythm WITH SINUS ARRHYTHMIA POSSIBLE LEFT ATRIAL ENLARGEMENT SEPTAL MYOCARDIAL INFARCTION ABNORMAL ECG NO SIG CHANGE PREVIOUS TRACING : 06/07/2017 10.40 DOCTOR: Roldan Pettit Interpretating Date/Time 06/10/2017 12:58:55
--- NOTE | 2017-06-10 15:40 | TR ---
Date Performed: 06/08/2017 Time Performed: 09:31:52 DOCTOR: Roldan Pettit DRUG LIST: CLINICAL HISTORY: ANGINA REASON FOR TEST: REASON FOR ENDING: OBSERVATION: CONCLUSION: Lexiscan stress test was performed under standard four minute protocol. Radionuclide was injected one minute prior to ending the test. No electrocardiographic abormalities were present to suggest ischemia. Nuclear imaging and interpretation are pending. COMMENTS:
--- NOTE | 2017-06-11 15:13 | EKG ---
Date Performed: 06/07/2017 Time Performed: 10:40:48 PTAGE: 77 years EKG: SINUS BRADYCARDIA SEPTAL MYOCARDIAL INFARCTION AGE UNDETERMINED CLINICAL CORRELATION NEEDED INTERPRETATION BASED ON A DEFAULT AGE OF 40 YEARS PREVIOUS TRACING : 11/08/2016 12.16 DOCTOR: Roldan Pettit Interpretating Date/Time 06/11/2017 15:12:15
== END 2017-06-08 13:36 | disposition home or self-care (01) ==
LOC: PHSDC 06:30 → NEPFCDU 15:22
PROVIDERS: ADMIT Internal Medicine Cardiovascular Disease; ATTEND Internal Medicine Cardiovascular Disease
DX: R07.9 Chest pain, unspecified (principal); H25.11 Age-related nuclear cataract, right eye; E78.5 Hyperlipidemia, unspecified; I10 Essential (primary) hypertension; Z87.891 Personal history of nicotine dependence; R00.1 Bradycardia, unspecified; Z79.899 Other long term (current) drug therapy; G47.00 Insomnia, unspecified
CPT/HCPCS: 00142; 66984; 71010; 78452; 80053; 82550; 84484; 85027; 93005; 93017; A9502; G0378; J0171; J2270; J2785; J7040; V2632

== ENCOUNTER → 2017-08-30 | Outpatient (CLI) | payer MEDICARE ==
[~2017-08-30] MED LIST changes: -CYCLOPENTOLATE HCL 1% OPHT SOLN 2 ML BTL ONE; +LUNE1TAB8 PO; -PHENYLEPHRINE HCL 10% OPTH SOLN 5 ML BTL ONE; -TETRACAINE 0.5% OPTH SOLN 4 ML BTL ONE; -TROPICAMIDE 1% OPHT SOLN 15 ML BTL ONE; +[UNRECOGNIZED DRUG - CODE] EACH EYE
[2017-08-30 09:42] LABS: HEMATOCRIT 39.9 % (35.0-46.0); HEMOGLOBIN 13.5 GM/DL (11.6-15.3); MEAN CORPUSCULAR HEMOGLOBIN 32.2 PG (27.0-34.0); MEAN CORPUSCULAR HGB CONC 33.9 % (32.0-36.0); MEAN PLATELET VOLUME 9.1 FL (7.0-11.0); PLATELET COUNT 291 TH/MM3 (150-450); RED CELL DISTRIBUTION WIDTH 13.2 % (11.6-17.2); WHITE BLOOD COUNT 4.1 TH/MM3 (4.0-11.0)
[2017-08-30 09:51] LABS: ALBUMIN 4.1 GM/DL (3.4-5.0); ALT (GPT) 38 U/L (10-53); AST (GOT) 31 U/L (15-37); BICARBONATE 28.7 MEQ/L (21.0-32.0); BLOOD UREA NITROGEN 21 MG/DL (7-18); CHLORIDE 103 MEQ/L (98-107); CHOLESTEROL 164 MG/DL (120-200); GLOMERULAR FILTRATION RATE 69 ML/MIN (>89); GLUCOSE,FASTING 92 MG/DL (74-99); SODIUM (NA) 137 MEQ/L (136-145)
[2017-08-30 09:58] LABS: ALKALINE PHOSPHATASE 93 U/L (45-117); CHOLESTEROL/ HDL RATIO 2.19 RATIO; HDL CHOLESTEROL 74.8 MG/DL (40.0-60.0); LDL CHOLESTEROL 69 MG/DL (0-99); LDL CHOLESTEROL DIRECT 75 MG/DL (0-99); TOTAL BILIRUBIN ADULT 0.4 MG/DL (0.2-1.0); TOTAL PROTEIN 7.4 GM/DL (6.4-8.2); TRIGLYCERIDES 103 MG/DL (42-150)
== END ==
LOC: PLAB 08-29 07:41
PROVIDERS: ATTEND Family Medicine
DX: E78.2 Mixed hyperlipidemia (principal); I10 Essential (primary) hypertension
CPT/HCPCS: 36415; 80053; 80061; 83721; 85027

== ENCOUNTER → 2017-09-15 | Outpatient (CLI) | payer MEDICARE ==
[~2017-09-15] MED LIST changes: +ECASA81 PO; +HYDR-3580 PO; +PANT20 PO; +PROPOFOL 500 MG/50 ML INJ 50 ML ONE; +SUVO1TAB4 PO
[2017-09-15 09:12] LABS: BILIRUBIN, URINE NEG (NEG); BLOOD, URINE NEG (NEG); GLUCOSE,URINE NEG (NEG); HYALINE CAST, URINE 1 /lpf (RARE); KETONE, URINE NEG (NEG); MUCUS URINE FEW /lpf (OCC); NITRITE,URINE NEG (NEG); SQUAMOUS EPITHELIAL CELL URINE <1 /hpf (0-5); URINE COLOR YELLOW (YELLW/STRAW); URINE LEUKOCYTE ESTERASE NEG (NEG)
[2017-09-15 09:12] LABS: HEMATOCRIT 37.8 % (35.0-46.0); MEAN CELL VOLUME 95.2 FL (80.0-100.0); MEAN CORPUSCULAR HEMOGLOBIN 32.7 PG (27.0-34.0); MEAN CORPUSCULAR HGB CONC 34.3 % (32.0-36.0); MEAN PLATELET VOLUME 8.3 FL (7.0-11.0); PLATELET COUNT 319 TH/MM3 (150-450); RED BLOOD COUNT 3.97 MIL/MM3 (4.00-5.30); RED CELL DISTRIBUTION WIDTH 14.6 % (11.6-17.2); WHITE BLOOD COUNT 5.8 TH/MM3 (4.0-11.0)
[2017-09-15 09:17] LABS: PROTHROMBIN TIME - PATIENT 9.7 SEC (9.8-11.6)
[2017-09-15 09:26] LABS: BICARBONATE 27.6 MEQ/L (21.0-32.0); CALCIUM 9.5 MG/DL (8.5-10.1); CREATININE 0.69 MG/DL (0.50-1.00)
== END ==
LOC: CPRE 07:56
PROVIDERS: ATTEND Orthopaedic Surgery
DX: Z01.812 Encounter for preprocedural laboratory examination (principal); M87.051 Idiopathic aseptic necrosis of right femur; M16.11 Unilateral primary osteoarthritis, right hip; M79.609 Pain in unspecified limb
CPT/HCPCS: 36415; 80048; 81001; 85027; 85610; 85730

== ENCOUNTER 2017-09-18 05:05 | Inpatient (IN) | payer MEDICARE, OTHER ==
[~2017-09-18] VITALS: Ht 156.2 cm; Wt 51.5 kg
[~2017-09-18 05:05] MED LIST changes: -DIFL0.0512 RIGHT EYE; -HYDR-3580 PO; -LUNE1TAB8 PO; -NEPA0.3D RIGHT EYE; -PROPOFOL 500 MG/50 ML INJ 50 ML ONE; -SIMV40TA PO; -VIGA0.5D RIGHT EYE
[2017-09-18] MEDS ORDERED: LACTATED RINGER'S 1000 ML IV PRN (05:30)
[2017-09-18] MEDS ORDERED: METOPROLOL TARTRATE 25 MG TAB PO PRN (05:30)
[2017-09-18] MEDS ORDERED: SODIUM CHLORID 0.9% 500 ML IV PRN (05:30)
[2017-09-18] MEDS ORDERED: CHLORHEXIDINE GLUCONATE 2 % 1 PACK (2 CLOTHS) TOPICAL PRN (05:30)
[2017-09-18] MEDS ORDERED: CHLORHEXIDINE GLUCONATE 4% SOLN 120 ML BTL TOPICAL SCH (05:45)
[2017-09-18] MEDS ORDERED: ceFAZolin 2 GM PREMIX 50 ML IV SCH (05:45)
[2017-09-18] MEDS: POVIDONE IODINE 5% (ANTISEPSIS KIT) 4 APPLICATIONS EACH NARE PRN ×2 (06:00→06:04)
[2017-09-18] MEDS ORDERED: GENTAMICIN SULFATE 80 MG/2 ML VIAL ONE (06:04)
[2017-09-18] MEDS ORDERED: MORPHINE SULFATE 8 MG/ML INJ IV PUSH PRN (07:00)
[2017-09-18] MEDS ORDERED: ONDANSETRON HCL 4 MG/2 ML VIAL IVP PRN (07:00)
[2017-09-18] MEDS ORDERED: TRANEXAMIC ACID INJ 0 MG in SODIUM CHLORIDE 0.9% INJ 100 ML IV SCH (07:00)
[2017-09-18] MEDS ORDERED: ACETAMINOPHEN/HYDROcodone 325 MG/7.5 MG TAB PO PRN (07:00)
[2017-09-18] MEDS ORDERED: Post-op Orders (for Pharmacy) XX ONE (07:00)
[2017-09-18] MEDS ORDERED: BISACODYL 10 MG SUPP RECTAL PRN (07:00)
[2017-09-18] MEDS ORDERED: TRANEXAMIC ACID IV SCH ×2 (07:00→10:00)
[2017-09-18] MEDS ORDERED: EXPAREL PERI-ARTICULAR INJECTION (TOTAL VOL. 60 ML) P-ARTICULR SCH ×2 (07:00)
[2017-09-18] MEDS ORDERED: MAGNESIUM HYDROXIDE SUSP 30 ML CUP PO PRN (07:00)
[2017-09-18] MEDS ORDERED: SODIUM CHLORIDE 0.9% IV SCH ×2 (07:00→10:00)
--- NOTE | 2017-09-18 08:50 | HHI.PR ---
Immediate Post Op Note Procedure Date: Sep 18, 2017 Pre Op Diagnosis: (1) Osteonecrosis of right hip Post Op Diagnosis: (1) Osteonecrosis of right hip Surgeon: Kingsley Armenta Seo Executive(s): Barney COLEMAN Procedure: Right total hip arthroplasty using Candido prosthesis. Findings: There was significant osteoarthritis with some irregularity in the femoral head consistent with her preoperative diagnosis of stage IV osteonecrosis Specimen(s) removed: None Estimated blood loss: 125 mL Anesthesia: Spinal Drains: None IVF Patient to: PACU Patient Condition: Good Implant/Devices: SEE IMPLANT LOG (if applicable) Date/Time of Procedure: SEE SURGICAL CARE RECORD Denice Armenta MD (Charles) Sep 18, 2017 08:50
--- NOTE | 2017-09-18 08:59 | PD.OP ---
Operative Report Date of Surgery: Sep 18, 2017 Preoperative Diagnosis: (1) Osteonecrosis of right hip Postoperative Diagnosis: (1) Osteonecrosis of right hip Procedure: Right total hip arthroplasty using Candido prosthesis. Anesthesia: Spinal Surgeon: Kingsley Armenta M.D. Babysitter(s): VIRGINIA Hall Operation and Findings: Indications and Findings: This 77-year-old woman has had a very short period of time where she had severe pain nonresponsive to conservative measures. She was seen by her primary care physician who had x-rays and a CT scan done and subsequently an MRI. She was found to have changes consistent with osteonecrosis of the femoral head with some early collapse. Physical findings showed severe pain in her hip with loss of mobility in the hip as well as severely limited gait. Operative findings were consistent with severe osteoarthritis with osteonecrosis and evidence of changes consistent with the radiographic findings as noted above. The prosthesis used was a Candido Trident acetabular shell size 44 mm outer diameter with a 0 Trident X3 polyethylene insert. The femoral component was an Accolade 2 size 3 x 132 neck angle with a Biolox delta head size 32 mm outer diameter with a +0 mm neck length. The patient was brought to the clean air operating suite and a spinal anesthetic was administered. The patient was then positioned into a lateral position with the right hip up on a Biomet lateral positioner. The hip and lower extremity were then prepped with alcohol, Hibiclens and ChloraPrep and draped in the usual manner with the hip draped free. Patient received prophylactic antibiotics preoperatively. The patient also received tranexamic acid preoperatively. An appropriate timeout procedure was carried out. An incision was then made from the upper of the greater trochanter proximally and posteriorly paralleling the fibers of the gluteus rizwana. The incision was deepened through subcutaneous tissues down to the fascia allyson and gluteus fascia. The gluteus fascia was then split longitudinally in line with its fibers up to the upper portion of the fascia allyson. With wound towels in place, the Charnley retractor was inserted. The sciatic nerve was identified and protected throughout the procedure. Dissection was then carried down to the interval between the gluteus minimus and the piriformis. A retractor was inserted. The piriformis and obturator conjoined tendon was released from the greater trochanter and reflected off the capsule. A capsulotomy was made longitudinally along the femoral neck to the base of the femoral neck and then curved distally along the posterior aspect of the greater trochanter. The hip was then internally rotated. The hip was then dislocated. The femoral neck was transected at the appropriate level using the oscillating saw placement of appropriate retractors. The femoral head was then removed. Preparation of the femur was initiated with a box osteotome followed by a curet to identify the medullary canal. Broaching was then initiated with the size 0 broach and went and 1 size increments up to size 3. The broach handle was removed. The femoral neck was then trimmed with a calcar planar. Attention was then directed to the acetabulum. Soft tissues were debrided from the acetabulum. Retractors were placed about the acetabulum. Reaming was then initiated with the 39 millimeter reamer and went in 1 mm increments up to the 43 millimeter diameter reamer. A trial reduction with the warty for millimeter trial prosthesis was carried out. When this was deemed to be appropriate, the trial prosthesis was removed. The acetabulum was then irrigated and cleaned. The actual prosthesis as noted above was then impacted into place and seated appropriately. Drill holes were then made and sounded. Appropriate sized screws were then inserted to stabilize the acetabulum further. The liner as noted above was then inserted into the acetabular shell and impacted into place. Osteophytes were trimmed from the acetabulum. Local anesthetic was then administered throughout the area of the acetabulum and anterior aspect of the femur. The trial neck was then placed on the broach for the above-noted prosthesis. The femoral head trial was placed onto the femoral neck with the external diameter of the head being 32 millimeters and the neck length being 0 millimeters. A trial reduction was then carried out. The stability, leg length and motion were excellent. There was no pistoning. The trial prosthesis was removed. The broach was removed. The femoral component was then impacted into the medullary canal of the femur after irrigation and suctioning. When this was appropriately seated a trial reduction was again carried out with the trial prosthesis. Again, there was no pistoning. The leg length was appropriate. The stability and motion were excellent. The trial prosthesis was then removed. After cleaning and drying the trunion of the femoral component, the above-noted femoral head was impacted onto the trunnion. The hip was then reduced. The stability and mobility were again checked along with leg lengths as noted above. The hip was then positioned appropriately and closure commenced after the remainder of the local anesthetic was injected throughout the hip. The external rotators and capsule were then repaired with #1 Vicryl interrupted transosseous sutures with a Krakw technique to reattach the external rotators and capsule to the posterior aspect of the greater trochanter. The capsule itself on the superior aspect was closed with #1 Vicryl interrupted [id number] sutures. The sciatic nerve was again inspected. The fascia allyson and gluteus fascia were then repaired with #1 Vicryl interrupted [id number] sutures. The subcutaneous tissues were closed with 2-0 Vicryl interrupted simple sutures with buried knots. The skin was closed with a continuous subcuticular closure of 4-0 Monocryl. The wound was then approximated with Steri-Strips. A silver impregnated dressing was applied to the hip. A knee immobilizer was applied to the leg. The patient was then transferred from the operating room to the recovery room in satisfactory condition having tolerated the procedure well. Counts are correct. Specimens: None. Estimated blood loss: 125 mL Denice Armenta MD (Charles) Sep 18, 2017 08:59
[2017-09-18] MEDS: ENALAPRIL MALEATE 10 MG TAB PO SCH ×2 (09:00→21:02)
[2017-09-18] MEDS: ASPIRIN EC 81 MG TABEC PO SCH ×2 (09:00→19:39)
--- NOTE | 2017-09-18 09:02 | HHI.FF ---
Face to Face Verification Diagnosis: (1) Status post total hip replacement, right Physical Therapy Gait training Hip: Total hip, Protocol: Right, Posterior hip precautions, Progress to weight bearing Canvas Knee Splint: When in bed & 2 pillows btw thighs Right LE Weight Bearing: WB as tolerated Right LE Range of Motion: Active ROM Nursing Nursing: Dressing changes (to begin on postoperative day 7.) Dressing Changes: Daily dressing change (to begin on postoperative day 7.), Coverderm/Primapore Additional Instructions Steri-Strips are to be removed on postoperative day 14. I have seen patient Soraya Cooper on 09/18/17. My clinical findings support the need for the requested home health care services because: Ltd mobility - disease progression Limited ability to care for self High risk of falls I certify that my clinical findings support that this patient is homebound because: Post-op weakness Unsteady gait/balance Unsafe to leave home unassisted Denice Armenta MD (Charles) Sep 18, 2017 09:02
[2017-09-18] MEDS ORDERED: HYDR-3580 PO (09:07)
[2017-09-18] MEDS ORDERED: ECASA81 PO (09:07)
[2017-09-18] MEDS ORDERED: MIDAZOLAM HCL 2 MG/2 ML VIAL ONE (09:09)
[2017-09-18] MEDS ORDERED: DO NOT ADM ANY ANTICOAGULANT DRUGS PRN (09:30)
[2017-09-18] MEDS: LACTATED RINGER'S 1000 ML INJ 1,000 ML IV SCH ×2 (09:30→19:19)
--- NOTE | 2017-09-18 10:35 | RADRPT ---
EXAM DATE/TIME: 09/18/2017 09:42 [facility] COMPARISON: No previous studies available for comparison. INDICATIONS : Post op right hip surgery MEDICAL HISTORY : None. SURGICAL HISTORY : None. ENCOUNTER: Initial ACUITY: 1 day PAIN SCORE: 0/10 LOCATION: Right hip FINDINGS: The patient is status post a total hip arthroplasty with a prosthesis. Prosthesis is well-seated. Ali gnment is anatomic. A fracture is not appreciated. CONCLUSION: Anatomic alignment. Nacho Hamilton MD FACR. Nacho Hamilton MD FACR on September 18, 2017 at 10:33 Board Certified Radiologist. This report was verified electronically.
[2017-09-18] MEDS ORDERED: *LABETALOL HCL 100 MG/20 ML VIAL PERIprocedural Use ONLY ONE (11:00)
[2017-09-18] MEDS: ACETAMINOPHEN/HYDROcodone 325 MG/7.5 MG TAB PO PRN ×3 (11:51→21:02)
[2017-09-18] MEDS: PANTOPRAZOLE SOD 20 MG DELAYED RELEASE TAB PO SCH (11:51)
[2017-09-18] MEDS: KETOROLAC TROMETHAMINE 30 MG/ML (IVP) VIAL IVP SCH ×2 (11:52→18:40)
[2017-09-18] MEDS ORDERED: PHENYLEPHRINE HCL 10 MG/ML VIAL IV ONE (12:00)
[2017-09-18] MEDS ORDERED: LACTATED RINGER'S 1000 ML INJ 1,000 ML IV ONE (12:00)
[2017-09-18] MEDS ORDERED: ONDANSETRON HCL 4 MG/2 ML VIAL IV ONE (12:00)
[2017-09-18] MEDS ORDERED: DEXAMETHASONE SOD PHOS 4 MG/ML VIAL IV ONE (12:00)
[2017-09-18] MEDS ORDERED: PROPOFOL 200 MG/20 ML AMP IV ONE (12:00)
[2017-09-18] MEDS ORDERED: LIDOCAINE HCL 1% PF 5 ML SYRINGE OTHER ONE (12:00)
[2017-09-18] MEDS ORDERED: PHENYLEPH/NS 1000 MCG/10 ML SYR IV ONE (12:00)
[2017-09-18 12:08] VITALS: BP 170/102; PULSE 75; RESP 17; TEMP 96.9; O2SAT 97
[2017-09-18] MEDS ORDERED: cloNIDine HCL 0.1 MG TAB PO PRN (13:30)
--- NOTE | 2017-09-18 15:53 | PD.CONS ---
[facility] By Dr. Armenta Reason for Consult Medical management Primary Care Physician Yariel Hamilton MD Diagnoses: History of Present Illness The patient is a 77-year-old female with past medical history of hypertension who is presenting to the hospital for elective right total hip arthroplasty. The patient said that around Christmastime she felt like she pulled a groin muscle. She said the pain became quite severe. The pain was located in her right groin and it radiated to the right hip and to the right lower part of her back. She tried heating pads at first. She went to see doctors and was given a trial of physical therapy which made the pain worse. The patient took pain medications that didn't help. She has been able to go up and down stairs as long as she holds onto the railing. She finally demanded an MRI and was found to have osteonecrosis of the right hip. The patient is status post surgery and currently feeling well. She has no acute complaints at this time. Discussed with nursing. Review of Systems Except as stated in HPI: all other systems reviewed are Neg Past Family Social History Allergies: Coded Allergies: Sulfa (Sulfonamide Antibiotics) (Verified Allergy, Severe, Rash, 07/04/17) diatrizoate meglumine (Verified Allergy, Severe, SWELLING OF EARS AND FACE , 07/04/17) gadobenic acid (Verified Allergy, Severe, SWELLING OF EARS AND FACE, 07/04) gadodiamide (Verified Allergy, Severe, SWELLING OF EARS AND FACE, 07/04/17 ) gadoteridol (Verified Allergy, Severe, SWELLING OF EARS AND FACE, 07/04/17 ) iodixanol (Verified Allergy, Severe, SWELLING OF EARS AND FACE, 07/04/17) iohexol (Verified Allergy, Severe, SWELLING OF EARS AND FACE, 07/04/17) latex (Verified Allergy, Severe, Red and itchy WHEN SHE WEARS GLOVES, OKAY FOR DOCTOR TO WEAR, 09/15/17) ITS OKAY FOR DOCTOR AND STAFF TO WEAR LATEX GLOVES penicillin G (Verified Allergy, Severe, Rash, 07/04/17) Past Medical History Hypertension Hyperlipidemia Insomnia Ectopic rupture Appendectomy Tonsillectomy Hysterectomy Ovarian cyst removal Active Ordered Medications Current Medications Medications (Trade) Dose Ordered Sig/Cony Route Start Time Stop Time Status Last Admin Lactated Ringer's 1,000 ml @ 30 mls/hr Q24H PRN IV 09/18/17 05:30 09/21/17 05:29 09/18/17 06:00 Sodium Chloride 500 ml @ 30 mls/hr [id number] PRN IV 09/18/17 05:30 09/21/17 05:29 (Lopressor) 25 mg IND[employer]RIAL [employer]ATIONS MANAGER PRN PO 09/18/17 05:30 09/21/17 05:29 (Betadine 5% Antisepsis Kit) 1 applic INDUSTRIAL RELATIONS MANAGER PRN EACH NARE 09/18/17 05:30 09/21/17 05:29 (Chlorhexidine 2% Cloth) 3 pack [employer]RIAL RELATIONS MANAGER PRN TOPICAL 09/18/17 05:30 09/21/17 05:29 09/18/17 05:30 (Hibiclens 4% Top Soln) 1 applic ONCE TOPICAL 09/18/17 05:45 09/21/17 05:44 09/18/17 06:00 Cefazolin Sodium/ Dextrose 50 ml @ 100 mls/hr [employer]RIAL [employer]ATIONS MANAGER IV 09/18/17 05:45 09/21/17 05:44 Lactated Ringer's 1,000 ml @ 80 mls/hr [id number] IV 09/18/17 06:49 09/18/17 09:30 Cefazolin Sodium 1000 mg/Sodium Chloride 100 ml @ 200 mls/hr Q6H IV 09/18/17 13:00 09/19/17 01:29 09/18/17 11:51 (Morphine Inj) 4 mg Q3H PRN IV PUSH 09/18/17 07:00 ([place] 7.5-325 Mg) 1 tab Q4H PRN PO 09/18/17 07:00 09/18/17 15:05 ([place] 7.5-325 Mg) 2 tab Q4H PRN PO 09/18/17 07:00 (Toradol Inj) 15 mg Q6H IVP 09/18/17 07:00 09/20/17 01:01 09/18/17 11:52 (Zofran Inj) 4 mg Q6H PRN IVP 09/18/17 07:00 (Colace) 100 mg BID PO 09/19/17 21:00 (Ambien) 5 mg HS PRN PO 09/18/17 21:00 (Dulcolax Supp) 10 mg DAILY PRN RECTAL 09/18/17 07:00 (Milk Of Magnesia Liq) 30 ml DAILY PRN PO 09/18/17 07:00 (Ecotrin Ec) 81 mg BID PO 09/18/17 09:00 (Vasotec) 20 mg BID PO 09/18/17 09:00 (Protonix) 20 mg DAILY PO 09/18/17 09:00 09/18/17 11:51 Patient Own Medication (Bepotastine Opth Drops (Bepr... BID EACH EYE 09/18/17 21:00 Future Hold Patient Own Medication PT OWN MED: (Suvorex... HS PO 09/18/17 21:00 Future Hold Miscellaneous Information ALL NURSING DEPARTME... UNSCH PRN .XX 09/18/17 09:30 09/19/17 09:29 (Catapres) 0.1 mg Q6H PRN PO 09/18/17 13:30 Family History Dementia CHF Social History The patient quit smoking 30 years ago. She drinks scotch occasionally. Physical Exam Vital Signs Vital Signs Date Time Temp Pulse Resp B/P (MAP) Pulse Ox O2 Delivery O2 Flow Rate FiO2 09/18/17 12:08 96.9 75 17 170/102 (124) 97 09/18/17 11:15 98.5 73 19 169/80 (109) 96 Room Air 09/18/17 11:00 75 21 176/81 (112) 93 Room Air 09/18/17 10:30 71 15 169/83 (111) 95 Room Air 09/18/17 10:00 98.2 71 22 169/79 (109) 95 Room Air 09/18/17 09:45 68 17 154/72 (99) 95 Room Air 09/18/17 09:30 61 21 154/72 (99) 100 Nasal Cannula 2 09/18/17 09:15 62 15 147/69 (95) 100 Nasal Cannula 2 09/18/17 09:05 96.1 64 15 141/62 (88) 100 Nasal Cannula 2 09/18/17 05:53 98.8 88 20 210/101 (137) 98 Physical Exam GENERAL: This is a well-nourished, well-developed patient, in no apparent distress. SKIN: No rashes, ecchymoses or lesions. Cool and dry. HEAD: Atraumatic. Normocephalic. No temporal or scalp tenderness. EYES: Pupils equal round and reactive. Extraocular motions intact. No scleral icterus. No injection or drainage. ENT: Nose without bleeding, purulent drainage or septal hematoma. Throat without erythema, tonsillar hypertrophy or exudate. Uvula midline. Airway patent. NECK: Trachea midline. No JVD or lymphadenopathy. Supple, nontender, no meningeal signs. CARDIOVASCULAR: Regular rate and rhythm without murmurs, gallops, or rubs. RESPIRATORY: Clear to auscultation. Breath sounds equal bilaterally. No wheezes , rales, or rhonchi. GASTROINTESTINAL: Abdomen soft, non-tender, nondistended. No hepato-splenomegaly , or palpable masses. No guarding. MUSCULOSKELETAL: Right lower extremity is currently bandaged. NEUROLOGICAL: Awake and alert. Cranial nerves II through XII intact. Motor and sensory grossly within normal limits. Five out of 5 muscle strength in all muscle groups. Normal speech. PSYCH: Mood and affect appropriate. Imaging Last Impressions Hip X-Ray 09/18/17 0000 Signed Impressions: Service Date/Time: Monday, September 18, 2017 09:42 - CONCLUSION: Anatomic alignment. Nacho Hamilton MD Assessment and Plan Assessment and Plan Osteonecrosis of the right hip Status post surgical repair 09/18/17. - Wound care, anticoagulation and weightbearing per orthopedic surgery. - Physical therapy. - Pain control with a bowel regimen. - Incentive spirometry. Hypertension Blood pressure elevated secondary to pain. The patient also states that she has white coat syndrome. - Resume home medications. - Clonidine as needed. Insomnia The patient has been struggling with insomnia for a long time for which she takes a sedative on a nightly basis. - Ambien as needed. PPx: Per primary Discussed Condition With Pt, nurse Porfirio Dutta DO Sep 18, 2017 15:53
[2017-09-18 16:39] VITALS: BP 161/82; PULSE 76; RESP 18; TEMP 96.9; O2SAT 97
[2017-09-18 20:22] VITALS: BP 156/88; PULSE 83; RESP 18; TEMP 96.9; O2SAT 96
[2017-09-18] MEDS ORDERED: SUVOREXANT 20 MG PO SCH (21:00)
[2017-09-18] MEDS ORDERED: BEPOTASTINE EACH EYE SCH (21:00)
[2017-09-18] MEDS ORDERED: ZOLPIDEM TARTRATE 5 MG TAB PO PRN (21:00)
--- NOTE | 2017-09-18 22:02 | EKG ---
Date Performed: 09/18/2017 Time Performed: 06:32:10 PTAGE: 77 years EKG: Sinus rhythm NORMAL ECG PREVIOUS TRACING : 06/07/2017 17.55 DOCTOR: Tamara Sosa Interpretating Date/Time 09/18/2017 21:58:13
[2017-09-18 23:18] VITALS: BP 160/82; PULSE 92; RESP 17; TEMP 97.2; O2SAT 96
[2017-09-19] MEDS: KETOROLAC TROMETHAMINE 30 MG/ML (IVP) VIAL IVP SCH ×3 (01:00→13:00)
[2017-09-19] MEDS: ACETAMINOPHEN/HYDROcodone 325 MG/7.5 MG TAB PO PRN ×2 (01:40→06:23)
[2017-09-19] MEDS: LACTATED RINGER'S 1000 ML INJ 1,000 ML IV SCH (01:59)
[2017-09-19 03:59] VITALS: BP 164/84; PULSE 89; RESP 17; TEMP 97.7; O2SAT 97
--- NOTE | 2017-09-19 06:02 | PD.ORT.PN ---
Subjective Post Op Day #: 1 Subjective Remarks She is doing well. She has minimal complaints. She indicates that the hip has "a little soreness" but no pain. There is less pain now than preoperatively. She has been up walking. Distance Walked 145 feet with PT. Objective Vitals Vital Signs Date Time Temp Pulse Resp B/P (MAP) Pulse Ox O2 Delivery O2 Flow Rate FiO2 09/19/17 03:59 97.7 89 17 164/84 (110) 97 09/18/17 23:18 97.2 92 17 160/82 (108) 96 09/18/17 20:22 96.9 83 18 156/88 (110) 96 09/18/17 16:39 96.9 76 18 161/82 (108) 97 09/18/17 12:08 96.9 75 17 170/102 (124) 97 09/18/17 11:15 98.5 73 19 169/80 (109) 96 Room Air 09/18/17 11:00 75 21 176/81 (112) 93 Room Air 09/18/17 10:30 71 15 169/83 (111) 95 Room Air 09/18/17 10:00 98.2 71 22 169/79 (109) 95 Room Air 09/18/17 09:45 68 17 154/72 (99) 95 Room Air 09/18/17 09:30 61 21 154/72 (99) 100 Nasal Cannula 2 09/18/17 09:15 62 15 147/69 (95) 100 Nasal Cannula 2 09/18/17 09:05 96.1 64 15 141/62 (88) 100 Nasal Cannula 2 I/O 09/18/17 09/18/17 09/18/17 09/19/17 09/19/17 09/19/17 07:00 15:00 23:00 07:00 15:00 23:00 Intake Total 2208 ml 1080 ml 360 ml Output Total 1025 ml Balance 1183 ml 1080 ml 360 ml Intake Oral 1080 ml 360 ml IV Total 408 ml Other 1800 ml Output Urine Total 900 ml Estimated Blood Loss 125 ml # Voids 5 2 # Bowel Movements 0 0 Imaging Last 72 hours Impressions Hip X-Ray 09/18/17 0000 Signed Impressions: Service Date/Time: Monday, September 18, 2017 09:42 - CONCLUSION: Anatomic alignment. Nacho Hamilton MD Objective Remarks She is resting comfortably, supine in bed. The dressing is dry and intact. Her neurovascular status is intact. Assessment & Plan Ortho Post Op Day #: 1 Problem List: (1) Osteonecrosis of right hip ICD Codes: M87.9 - Osteonecrosis, unspecified Status: Resolved (2) Status post total hip replacement, right ICD Codes: Z96.641 - Presence of right artificial hip joint Plan: Continue postoperative care and PT. Assessment and Plan Condition: Good. Orthopedically stable. DVT prophylaxis: TEDs, aspirin, sequentials. Discharge plans: Home with home health care, probably today. An appointment was scheduled through the office. Prescriptions: [place] 7.5/325 We have discussed precautions and the procedure. Denice Armenta MD ([place]) Sep 19, 2017 06:02
--- NOTE | 2017-09-19 06:44 | HHI.DS ---
Discharge Summary Admission Date Sep 18, 2017 at 06:55 Discharge Date: Sep 19, 2017 Admitting Diagnosis Osteonecrosis and osteoarthritis, right hip. Diagnosis: (1) Osteonecrosis of right hip Diagnosis: Principal ICD Codes: M87.9 - Osteonecrosis, unspecified Status: Resolved (2) Status post total hip replacement, right Diagnosis: Principal ICD Codes: Z96.641 - Presence of right artificial hip joint Brief History This is a 77 year old female patient has been very active until the past few weeks when she began having significant pain in her right hip and inability to walk. She had a hip x-ray, CT scan and MRI, the latter of which showed what appeared to be early collapse of the upper portion of the femoral head with evidence of osteonecrosis. She had limited range of motion and tenderness. Conservative measures did not help her. Significant Findings There was significant limited range of motion in the right hip. There was significant tenderness in the hip on motion. She had a quite antalgic gait. Imaging studies including the CT scan, x-rays and MRI showed changes consistent with severe osteoarthritis and osteonecrosis with early femoral head collapse. Imaging Last 72 hours Impressions Hip X-Ray 09/18/17 0000 Signed Impressions: Service Date/Time: Monday, September 18, 2017 09:42 - CONCLUSION: Anatomic alignment. Nacho Hamilton MD PE at Discharge She is resting comfortably, supine in bed. The dressing is dry and intact. Her neurovascular status is intact. Hospital Course The patient was admitted as noted above. The above noted operative procedure was carried out that day. Preoperatively prophylactic antibiotics were administered Ancef according to protocol. These were continued postoperatively. The patient also received tranexamic acid to help with hemostasis according to protocol. In the postanesthesia care unit, mechanical methods of DVT prophylaxis in the form of REYNA stockings and sequentials were initiated. Physical therapy was initiated on the day of surgery. On postoperative day #1 physical therapy continued. DVT prophylaxis with aspirin 81 mg twice daily was initiated at this time. The patient continued physical therapy throughout the hospitalization. The distance walked improved throughout the hospitalization. The patient was discharged on postoperative day 1 with the disposition being to home with home health care. An appointment for follow-up was made prior to admission. Pt Condition on Discharge: Good Discharge Disposition: Disch w/ Home Health Serv Discharge Instructions Diet Instructions: As Tolerated, No Restrictions Activities You Can Perform: Full Weight Bearing, Shower Only-No Bath Activities to Avoid: Lifting/Bending, Strenuous Activity, Bathing, Driving Follow up Referrals: Orthopedics with Denice Armenta MD ([place]) New Medications: Aspirin (Aspirin ) 81 Mg Tabdr 81 MG PO BID for Prevent Blood Clot for 30 Days, #60 TAB Hydrocodone/Acetaminophen (Hydrocodone-Acetamin 7.5-325) 7.5 Mg-325 Mg Tablet 1 TAB PO Q4H PRN for PAIN SCALE 1 TO 10, #30 TAB Continued Medications: Bepotastine Opth Drops (Bepreve Opth Drops) 1.5% Drops 1 DROP EACH EYE BID for Allergies, #1 BOTTLE 6 Refills Enalapril (Enalapril) 20 Mg Tab 20 MG PO BID, #30 TAB 0 Refills Pantoprazole (Protonix) 20 Mg Tab 20 MG PO DAILY for Reflux, #30 TAB 0 Refills Suvorexant (Belsomra) 20 Mg Tab 20 MG PO HS for Provide Good Sleep, #30 TAB 0 Refills Discontinued Medications: Aspirin (Aspirin ) 81 Mg Tabdr 81 MG PO DAILY, TAB 0 Refills ON HOLD FOR SURGERY Denice Armenta MD ([place]) Sep 19, 2017 06:44
[2017-09-19 07:51] LABS: HEMATOCRIT 31.3 % (35.0-46.0); HEMOGLOBIN 10.8 GM/DL (11.6-15.3); MEAN CELL VOLUME 94.9 FL (80.0-100.0); MEAN CORPUSCULAR HEMOGLOBIN 32.8 PG (27.0-34.0); MEAN CORPUSCULAR HGB CONC 34.5 % (32.0-36.0); MEAN PLATELET VOLUME 8.7 FL (7.0-11.0); PLATELET COUNT 289 TH/MM3 (150-450); RED BLOOD COUNT 3.29 MIL/MM3 (4.00-5.30); RED CELL DISTRIBUTION WIDTH 14.6 % (11.6-17.2); WHITE BLOOD COUNT 9.9 TH/MM3 (4.0-11.0)
[2017-09-19 08:00] VITALS: BP 166/93; PULSE 84; RESP 17; TEMP 97.1; O2SAT 97
[2017-09-19 08:16] LABS: BICARBONATE 29.3 MEQ/L (21.0-32.0); CALCIUM 8.5 MG/DL (8.5-10.1); CREATININE 0.69 MG/DL (0.50-1.00); MAGNESIUM 2.1 MG/DL (1.5-2.5)
[2017-09-19] MEDS: PANTOPRAZOLE SOD 20 MG DELAYED RELEASE TAB PO SCH (08:29)
[2017-09-19] MEDS: ENALAPRIL MALEATE 10 MG TAB PO SCH (08:29)
[2017-09-19] MEDS: ASPIRIN EC 81 MG TABEC PO SCH (08:29)
[2017-09-19] MEDS ORDERED: PNEUMOCOCCAL POLYVALENT INJ 25 MCG/0.5 ML SYR IM ONE (10:00)
[2017-09-19 12:00] VITALS: BP 151/80; PULSE 72; RESP 17; TEMP 96; O2SAT 94
[2017-09-19] MEDS ORDERED: DOCUSATE SODIUM 100 MG CAP PO SCH (21:00)
[2017-09-21] MEDS ORDERED: PROPOFOL 500 MG/50 ML INJ 50 ML ONE (08:14)
== END 2017-09-19 15:23 | disposition home health service (06) | DRG 470 ==
LOC: HSDC 05:05 → HSDI 06:55 → EDSTATUS 07:00 → N06B 11:32
PROVIDERS: ADMIT Orthopaedic Surgery; ATTEND Orthopaedic Surgery
PROC: 0SR902A Replacement of Right Hip Joint with Metal on Polyethylene Synthetic Substitute, Uncemented, Open Approach (ICD-10-PCS; principal; 2017-09-18 06:43)
DX: M87.9 Osteonecrosis, unspecified (principal); I10 Essential (primary) hypertension; M16.11 Unilateral primary osteoarthritis, right hip; G47.00 Insomnia, unspecified; E78.5 Hyperlipidemia, unspecified; Z87.891 Personal history of nicotine dependence; Z23 Encounter for immunization
CPT/HCPCS: 73502; 80048; 83735; 85027; 86850; 86900; 86901; 86920; 86921; 86922; 90732; 93005; 94150; C1776; C9290; J0690; J1100; J1580; J1885; J2250; J2270; J2370; J2405; J3010; J7120; L1830

== ENCOUNTER → 2017-12-25 | Outpatient (CLI) | payer MEDICARE ==
[~2017-12-25] MED LIST changes: +HYDR-3580 PO
[2017-12-25 10:31] LABS: HEMATOCRIT 40.9 % (35.0-46.0); MEAN CELL VOLUME 92.9 FL (80.0-100.0); MEAN CORPUSCULAR HEMOGLOBIN 31.9 PG (27.0-34.0); MEAN CORPUSCULAR HGB CONC 34.3 % (32.0-36.0); MEAN PLATELET VOLUME 9.9 FL (7.0-11.0); PLATELET COUNT 261 TH/MM3 (150-450); RED BLOOD COUNT 4.41 MIL/MM3 (4.00-5.30); RED CELL DISTRIBUTION WIDTH 12.6 % (11.6-17.2); WHITE BLOOD COUNT 3.9 TH/MM3 (4.0-11.0)
[2017-12-25 10:51] LABS: AST (GOT) 19 U/L (15-37); BICARBONATE 29.2 MEQ/L (21.0-32.0); BLOOD UREA NITROGEN 24 MG/DL (7-18); CALCIUM 9.1 MG/DL (8.5-10.1); CHLORIDE 107 MEQ/L (98-107); CHOLESTEROL 229 MG/DL (120-200); CREATININE 0.77 MG/DL (0.50-1.00); GLOMERULAR FILTRATION RATE 73 ML/MIN (>89); SODIUM (NA) 142 MEQ/L (136-145)
[2017-12-25 10:53] LABS: GLUCOSE,FASTING 81 MG/DL (74-99)
[2017-12-25 11:00] LABS: ALKALINE PHOSPHATASE 95 U/L (45-117); ALT (GPT) 19 U/L (10-53); HDL CHOLESTEROL 76.3 MG/DL (40.0-60.0); LDL CHOLESTEROL 135 MG/DL (0-99); LDL CHOLESTEROL DIRECT 141 MG/DL (0-99); TOTAL BILIRUBIN ADULT 0.3 MG/DL (0.2-1.0); TOTAL PROTEIN 7.3 GM/DL (6.4-8.2); TRIGLYCERIDES 88 MG/DL (42-150)
== END ==
LOC: PLAB 07:22
PROVIDERS: ATTEND Family Medicine
DX: E78.2 Mixed hyperlipidemia (principal); I10 Essential (primary) hypertension
CPT/HCPCS: 36415; 80053; 80061; 83721; 85027